=== PATIENT | male | born 1975 | race Caucasian/White ===

== ENCOUNTER 2018-12-18 20:03 | Emergency (ER) | payer MEDICAID ==
[~2018-12-18] VITALS: Ht 190.5 cm; Wt 136.1 kg
[2018-12-18 20:39] VITALS: BP 132/107
--- NOTE | 2018-12-18 21:05 | NUR ---
PT TAKEN TO BED 11
--- NOTE | 2018-12-18 21:15 | NUR ---
PT BIB FAMILY FOR FLU LIKE SYMPTOMS X2 DAYS. PT STATES HE HAS PRESSURE HEADACHE AT 10/10 AND BODY ACHES AT 10/10. PT REPORTS FEELING WARM, TEMPERATURE AT THIS TIME IS 100.3 ORALLY. PT REPORTS COUGH. RR SYMMETRICAL, NON-LABORED, AND HAS BREATH SOUNDS CLEAR THROUGHOUT. ER MD TO SEE PT. SAFETY PRECAUTIONS IN PLACE.
[2018-12-18] MEDS ORDERED: IBUPROFEN 800 MG TAB PO ONE (21:35)
[2018-12-18] MEDS ORDERED: ONDANSETRON 4 MG TAB PO ONE (21:50)
[2018-12-18 22:10] VITALS: BP 128/95
--- NOTE | 2018-12-18 22:10 | NUR ---
Patient discharged with v/s stable. Written and verbal after care instructions given and explained. Patient alert, oriented and verbalized understanding of instructions. Ambulatory with steady gait. All questions addressed prior to discharge. ID band removed. Patient advised to follow up with PMD. Rx of IBUPROFEN 600MG AND ZOFRAN 4MG ODT given. Patient educated on indication of medication including possible reaction and side effects. Opportunity to ask questions provided and answered.
== END 2018-12-18 22:10 | disposition home or self-care (01) ==
LOC: MED 20:03
DX: B34.9 Viral infection, unspecified (principal)
CPT/HCPCS: 36415; 87804; 99283; Q0162

== ENCOUNTER 2020-01-16 16:30 | Emergency (ER) | payer MEDICAID ==
[~2020-01-16] VITALS: Ht 190.5 cm; Wt 149.7 kg
[2020-01-16 16:36] VITALS: BP 141/74
--- NOTE | 2020-01-16 16:50 | NUR ---
PT AMBULATED TO ROOM 3, STEADY GAIT.
--- NOTE | 2020-01-16 16:52 | NUR ---
44 Y/M PRESENTS TO ED FOR R EAR PAIN X 2 DAY, PT ALSO REPORTS N/V/D AND FEVERS. PT REPORTS DRY COUGH. LUNGS CLEAR THROUGHOUT, RR EVEN AND UNLABORED. NEGATIVE FOR SICK CONTACTS AT HOME. PMH- HEP C NKDA
[2020-01-16 18:14] VITALS: BP 141/74
--- NOTE | 2020-01-16 18:14 | NUR ---
Patient discharged with v/s stable. Written and verbal after care instructions given and explained. Patient alert, oriented and verbalized understanding of instructions. Ambulatory with steady gait. All questions addressed prior to discharge. ID band removed. Patient advised to follow up with PMD. Rx of MOTRIN, PREDNISONE given. Patient educated on indication of medication including possible reaction and side effects. Opportunity to ask questions provided and answered.
== END 2020-01-16 18:14 | disposition home or self-care (01) ==
LOC: MED 16:30
DX: H92.01 Otalgia, right ear (principal); R05 Cough; R50.9 Fever, unspecified; Z86.19 Personal history of other infectious and parasitic diseases
CPT/HCPCS: 99283

== ENCOUNTER 2020-07-18 10:52 | Emergency (ER) | payer MEDICAID ==
[~2020-07-18] VITALS: Ht 190.5 cm; Wt 145.1 kg
[2020-07-18 10:53] VITALS: BP 136/77
--- NOTE | 2020-07-18 11:07 | NUR ---
PT AMB TO BED 8
--- NOTE | 2020-07-18 11:16 | NUR ---
DR CEE EVALUATING PT.
--- NOTE | 2020-07-18 11:23 | NUR ---
C/O PAIN, REDNESS & SMALL LUMP TO LOWER ABDOMINAL X 3 DAYS. DENIES N/V/D OR DYSURIA. PT AOX4 AFIBRILE , AMBULATORY WITH STEADY GAIT , SCE , ROUND SOFT ABDOMEN , REDNESS ON HYPOGASTRIC AREA. MED HX: DENIES
--- NOTE | 2020-07-18 11:33 | NUR ---
DR CEE AT BEDSIDE [facility].
[2020-07-18] MEDS ORDERED: LIDOCAINE/EPI 1% 1:100000 20 ML VIAL INJ ONE (11:40)
[2020-07-18 13:04] VITALS: BP 141/71
--- NOTE | 2020-07-18 13:05 | NUR ---
Patient discharged with v/s stable. Written and verbal after care instructions given and explained. Patient alert, oriented and verbalized understanding of instructions. Ambulatory with steady gait. All questions addressed prior to discharge. ID band removed. Patient advised to follow up with PMD. Rx of BACTRIM/ACETAMINOPHEN given. Patient educated on indication of medication including possible reaction and side effects. Opportunity to ask questions provided and answered.
== END 2020-07-18 13:05 | disposition home or self-care (01) ==
LOC: MED 10:52
DX: L02.211 Cutaneous abscess of abdominal wall (principal); L03.311 Cellulitis of abdominal wall; Z98.890 Other specified postprocedural states
CPT/HCPCS: 10060; 81002; 99283; J2001

== ENCOUNTER 2020-07-20 18:59 | Emergency (ER) | payer MEDICAID ==
[~2020-07-20] VITALS: Ht 190.5 cm; Wt 145.1 kg
[2020-07-20 19:08] VITALS: BP 129/75
--- NOTE | 2020-07-20 19:12 | NUR ---
PT AMBULATED TO BED 3 WITH STEADY GAIT
--- NOTE | 2020-07-20 19:16 | NUR ---
44 Y/O MALE RETURNED TO ER FOR RE CHECK TO ABSCESS TO LOWER MID ABD; DENIES N/V/D; SKIN IS PINK/WARM/DRY; AAOX4 WITH EVEN AND STEADY GAIT; HR EVEN AND REGULAR; PT DENIES ANY FEVER, CP, SOB, OR COUGH AT THIS TIME; PATIENT STATES PAIN OF 0/10 AT THIS TIME; VSS; PATIENT POSITIONED FOR COMFORT; HOB ELEVATED; BEDRAILS UP X2; BED DOWN AND LOCKED. PMH: PT DENIES NKA
[2020-07-20 19:18] VITALS: BP 129/75
--- NOTE | 2020-07-20 21:05 | NUR ---
pts wound was coverd with adherent gauze. pt stated that it felt better.
== END 2020-07-20 21:17 | disposition home or self-care (01) ==
LOC: MED 18:59
DX: L02.211 Cutaneous abscess of abdominal wall (principal); Z98.890 Other specified postprocedural states
CPT/HCPCS: 99282